=== PATIENT | female | born 1975 | race Caucasian/White ===

== ENCOUNTER 2021-04-04 09:22 | Day surgery (SDC) | payer OTHER ==
[~2021-04-04] VITALS: Ht 165.1 cm; Wt 90.3 kg
[~2021-04-04 09:22] MED LIST: LIDOCAINE 2% 100MG/5ML SDV (FOR ANES.) As Ordered ONE; LR 1,000 ML IV ONE; MIDAZOLAM INJ 2MG/2ML VIAL (J2250 PER 1MG) As Ordered ONE; cefoTEtan DISODIUM 2 GM in D5W MINI-BAG PLUS 50 ML IV ONE; fentaNYL 100 MCG/2 ML INJECTION (J3010) As Ordered ONE
[2021-04-04] MEDS ORDERED: GIANVI PO (09:45)
[2021-04-04] MEDS ORDERED: AMOX875T2 PO (09:45)
[2021-04-04] MEDS ORDERED: LIDOCAINE 2% 100MG/5ML SDV (FOR ANES.) As Ordered ONE (09:48)
[2021-04-04] MEDS ORDERED: BUPIVACAINE HCL 0.25% 30ML VIAL As Ordered ONE (09:50)
[2021-04-04] MEDS ORDERED: SCOPOLAMINE 1MG TRANSDERMAL PATCH As Ordered ONE (10:06)
[2021-04-04] MEDS ORDERED: dexameTHASONE 4 MG/ML 1ML VIAL (J1100 PER 1MG) As Ordered ONE (10:49)
[2021-04-04] MEDS ORDERED: ROCURONIUM BROMIDE 50 MG/5 ML VIAL As Ordered ONE (10:49)
[2021-04-04] MEDS ORDERED: propofoL 200 MG/20 ML VIAL As Ordered ONE ×2 (10:49→12:58)
[2021-04-04] MEDS ORDERED: METOCLOPRAMIDE INJ 10MG/2ML VIAL (J2765 PER 1) As Ordered ONE ×2 (10:50→14:02)
[2021-04-04] MEDS ORDERED: ONDANSETRON 4MG/2ML VIAL As Ordered ONE ×2 (10:50→13:18)
[2021-04-04] MEDS ORDERED: ACETAMINOPHEN 1000MG 100ML IV BTL (OFIRMEV) (J0131 PER 10MG) As Ordered ONE (10:50)
[2021-04-04] MEDS ORDERED: GLYCOPYRROLATE INJ 0.2 MG/ML 2 ML VIAL As Ordered ONE (11:03)
[2021-04-04] MEDS ORDERED: ePHEDrine SULFATE 25 MG/5 ML(5MG/ML) SYRINGE As Ordered ONE (11:06)
[2021-04-04] MEDS ORDERED: SUGAMMADEX SODIUM 500 MG/5 ML VIAL (BRIDION) As Ordered ONE (11:12)
[2021-04-04] MEDS ORDERED: HYDROmorphone HCL 2 MG/ML 1ML VIAL (J1170) As Ordered ONE (11:48)
[2021-04-04] MEDS ORDERED: KETOROLAC 60MG 2ML VIAL As Ordered ONE (11:50)
[2021-04-04] MEDS ORDERED: HYDR-3715 PO (13:33)
[2021-04-04] MEDS ORDERED: LR 1,000 ML IV SCH (13:35)
[2021-04-04] MEDS ORDERED: fentaNYL 100 MCG/2 ML INJECTION (J3010) IV PRN (13:35)
[2021-04-04] MEDS ORDERED: ONDANSETRON 4MG/2ML VIAL IV PRN ×3 (13:35→16:05)
[2021-04-04] MEDS ORDERED: oxyCODONE 5MG TAB PO PRN (13:35)
[2021-04-04] MEDS ORDERED: NORCO, ANEXSIA 5/325MG TABLET (HYDROcodone/ACETAMINOPHEN) PO PRN (14:00)
[2021-04-04] MEDS ORDERED: ACETAMINOPHEN 500 MG TAB PO PRN (14:00)
[2021-04-04] MEDS ORDERED: IBUPROFEN 600MG TAB PO PRN (14:00)
[2021-04-04] MEDS: HYDROMORPHONE HCL 0.5 MG/ 0.5 ML SYRINGE (J1170 PER 1) IV PRN ×2 (14:06→14:44)
[2021-04-04] MEDS ORDERED: METOCLOPRAMIDE INJ 10MG/2ML VIAL (J2765 PER 1) IV PRN (14:15)
[2021-04-04] MEDS ORDERED: ASPIRIN 81 MG CHEW TABLET As Ordered ONE (14:30)
[2021-04-04] MEDS ORDERED: ASPIRIN 325 MG TAB PO ONE (14:40)
--- NOTE | 2021-04-04 14:59 | REP ---
INDICATION: C/O CHEST PAIN, PT IN MAIN RECOVERY. COMPARISON: None. FINDINGS: The technique utilized in obtaining the radiograph has magnified the cardiac silhouette and accentuated the interstitial markings. The superior mediastinal structures are midline. The cardiac silhouette is unremarkable in size, shape, and position. The diaphragmatic surfaces of the lungs are regular, and the costophrenic angles are clear. The pulmonary kenyon are clear. The imaged osseous structures are intact. IMPRESSION: There is no acute cardiopulmonary disease. <Electronically signed by Ryan Perez > 04/04/21 1898
[2021-04-04] MEDS ORDERED: NITROGLYCERIN 0.4 MG SUBL TABLET SL PRN (15:25)
[2021-04-04 15:58] LABS: BASO % 0.2 % (0.0-1.0); EOS % 0.1 % (0.0-3.0); HEMATOCRIT 38.5 % (36.0-47.0); HEMOGLOBIN 12.6 g/dl (12.0-15.5); LYMPH # 0.8 10^3/uL (1.5-5.0); LYMPH % 6.6 % (24.0-44.0); MEAN CORPUSCULAR HEMOGLOBIN 28.8 pg (27.0-33.0); MEAN CORPUSCULAR HGB CONC 32.7 g/dl (32.0-36.5); MEAN CORPUSCULAR VOLUME 88.1 fl (80.0-96.0); MONO # 0.1 10^3/uL (0.0-0.8); MONO % 0.9 % (2.0-8.0); NEUTROPHILS # 11.4 10^3/uL (1.5-8.5); NEUTROPHILS % 91.9 % (36.0-66.0); PLATELET COUNT, AUTOMATED 433 10^3/uL (150-450); RED BLOOD COUNT 4.37 10^6/uL (4.00-5.40); WHITE BLOOD COUNT 12.4 10^3/uL (4.0-10.0)
[2021-04-04] MEDS ORDERED: SENOKOT S TAB PO PRN ×2 (16:05)
[2021-04-04] MEDS ORDERED: GI COCKTAIL 50ML BTL(HYOSCYAMINE/MAALOX/LIDOCAINE VISCOUS)(1:3:1) PO ONE ×3 (16:05→19:00)
[2021-04-04] MEDS ORDERED: NALOXONE INJ 0.4MG/1ML VIAL (J2310 PER 1MG) IV PRN ×3 (16:05→16:35)
[2021-04-04] MEDS ORDERED: PANTOPRAZOLE 40MG VIAL (C9113 PER 1) IV ONE ×3 (16:05→18:00)
[2021-04-04] MEDS ORDERED: SUCRALFATE 1 GM TAB PO ONE ×3 (16:05→17:30)
[2021-04-04] MEDS ORDERED: MOM 30ML SUSPENSION UDC PO PRN ×3 (16:05)
[2021-04-04] MEDS ORDERED: GI COCKTAIL 50ML BTL(HYOSCYAMINE/MAALOX/LIDOCAINE VISCOUS)(1:3:1) PO PRN ×3 (16:05→23:00)
[2021-04-04] MEDS ORDERED: HYDROMORPHONE HCL 0.5 MG/ 0.5 ML SYRINGE (J1170 PER 1) IV ONE ×3 (16:05)
[2021-04-04] MEDS ORDERED: PERCOCET 5MG/325MG TAB PO PRN ×6 (16:05)
[2021-04-04 16:42] LABS: ALBUMIN 3.2 GM/DL (3.2-5.2); ALT/SGPT 19 U/L (12-78); BILIRUBIN,TOTAL 0.3 MG/DL (0.2-1.0); BLOOD UREA NITROGEN 10 MG/DL (7-18); CARBON DIOXIDE LEVEL 24 MEQ/L (21-32); CHLORIDE LEVEL 105 MEQ/L (98-107); CPK CREATINE PHOSPHOKINASE 28 U/L (26-192); CREATININE FOR GFR 1.08 MG/DL (0.55-1.30); GLOMERULAR FILTRATION RATE 58.7 (>58); GLUCOSE, FASTING 136 MG/DL (70-100); MAGNESIUM LEVEL 2.2 MG/DL (1.8-2.4); POTASSIUM SERUM 4.4 MEQ/L (3.5-5.1); SODIUM LEVEL 141 MEQ/L (136-145); TOTAL PROTEIN 7.1 GM/DL (6.4-8.2); TROPONIN I < 0.02 NG/ML (< 0.10)
[2021-04-04 16:47] LABS: CK-MB VALUE MASS < 1.0 NG/ML (<3.6); CPK CREATINE PHOSPHOKINASE 24 U/L (26-192); MB/CK RELATIVE INDEX 4.17 (< OR =4)
--- NOTE | 2021-04-04 16:52 | HPE ---
HISTORY AND PHYSICAL DATE OF ADMISSION: 04/04/2021 CHIEF COMPLAINT: Chest pain. HISTORY OF PRESENT ILLNESS: This is a 46-year-old female status post laparoscopic cholecystectomy secondary to biliary cholic and cholelithiasis, developed postoperative chest pain in the recovery room. Hospitalist was asked to admit the patient for observation. Patient describes a twisting, wringing kind of pain in the left anterior chest, "feels like wringing a washcloth," without any accompanying shortness of breath, palpitations, lightheadedness, dizziness, diaphoresis or vomiting. Patient describes nausea and pleuritic chest pain, worse when she takes a deep breath, unchanged by position or food. Patient says the pain radiates to the back between her shoulder blades. No fever or chills. EKG shows sinus rhythm, ventricular rate of 76. Patient's blood pressure was 135/97. She has had no prior history of smoking, hypertension, diabetes, hypercholesterolemia and is without any family history of early coronary artery disease. Hospitalist was asked to observe the patient for chest pain. Patient has no prior history of hypercoagulable state, deep venous thrombosis (DVT) or pulmonary embolism (PE) in the past. PAST MEDICAL HISTORY: 1. Cholelithiasis. 2. Biliary colic. PAST SURGICAL HISTORY: 1. Teeth extractions. 2. Laparoscopic cholecystectomy 04/04/[address] Bauman. ALLERGIES: No known drug allergies. Patient has a BEE VENOM honey bee allergy. HOME MEDICATIONS: - oral contraceptives - vitamins SOCIAL HISTORY: Patient does not smoke, drinks about twice a year, wine. About a week ago, she tried different types of beer. 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 No recreational drug use. Healthcare proxy is her . CODE STATUS: FULL CODE. FAMILY HISTORY: Mother is alive and well at the age of 61. Father age 63 with history of atrial fibrillation, prior history of ablation. REVIEW OF SYSTEMS: A 10 point system is negative except for positive findings in the history of present illness (HPI) PHYSICAL EXAMINATION: VITAL SIGNS: Temperature 98.4, pulse 73, respiratory rate 18, blood pressure 135/87, 98% on 3 liters nasal cannula. GENERAL: Patient is awake, alert, oriented to person, place and time, answering questions appropriately. HEENT: Anicteric. No jaundice. No jugular venous distention (JVD) or thyromegaly. Dry mucous membranes. LUNGS: Clear to auscultation. No wheezing, rales or rhonchi. HEART: S1, S2. Sinus rhythm. No murmurs, rubs or gallops. ABDOMEN: Soft. Some tenderness epigastric region with radiation to the back. No rebound or guarding. Postoperative laparoscopic incision sites are clean and dry. No bloody drainage. EXTREMITIES: No clubbing, cyanosis or edema. LABORATORY DATA: Pending. EKG: Sinus rhythm. Ventricular rate of 76. ASSESSMENT: A 46-year-old female with a history of cholelithiasis, biliary colic status post laparoscopic cholecystectomy, developed anterior chest pain described as a wringing sensation, like wringing out a washcloth, postoperatively. Hospitalist was called to observe the patient overnight to rule out acute coronary syndrome. Patient does not have any cardiac risk factors such as hypertension, dyslipidemia, diabetes or hypercholesterolemia. She does admit to having psychosocial stress about two weeks prior to her surgery. No family history of early coronary artery disease. Patient also has no history of any hypercoagulable state, deep venous thrombosis (DVT) or pulmonary embolism (PE) in the past and has not been immobilized. IMPRESSION: 1. Atypical chest pain, most likely gastrointestinal (GI) related secondary to her recent laparoscopic cholecystectomy. Patient will be given Protonix, Carafate, GI cocktail as needed. Despite not having any history of coronary artery disease or cardiovascular risk factors or family history of coronary artery disease, patient will be observed overnight with cardiac markers every 6 hours, a 12-lead EKG every 6 hours as needed for chest pain and a 2D echocardiogram will be obtained. 2. Cholelithiasis/biliary colic status post laparoscopic cholecystectomy. Management per Dr. Bauman. Percocet 1-2 tablets every 4-6 hours, ibuprofen 600 mg every 6 hours with food. Perioperative antibiotics were given Cefotetan. 3. Hypertension, uncontrolled, secondary to pain. Patient has been given Percocet 1-2 tablets as needed, intravenous (IV) Dilaudid times one dose and ibuprofen and Tylenol. 4. Abnormal EKG: check 2 d echo. monitor for anginal sx's and cycle cardiac markers. DISPOSITION: Patient may be discharged home in the morning if negative findings overnight for acute coronary syndrome. [facility]
[2021-04-04 17:00] VITALS: BP 124/82
[2021-04-04 17:03] LABS: CK-MB VALUE MASS < 1.0 NG/ML (<3.6); MB/CK RELATIVE INDEX 3.57 (< OR =4)
[2021-04-04] MEDS: NS 1,000 ML IV SCH (17:24)
[2021-04-04 17:30] VITALS: BP 134/87
[2021-04-04] MEDS ORDERED: SUCRALFATE 1 GM TAB PO SCH ×2 (17:30)
[2021-04-04] MEDS: KETOROLAC 30 MG/ML 1ML VIAL IV SCH (17:38)
[2021-04-04 18:30] VITALS: BP 128/81
[2021-04-04] MEDS ORDERED: HYDROMORPHONE HCL 0.5 MG/ 0.5 ML SYRINGE (J1170 PER 1) IV PRN (19:00)
[2021-04-04 19:30] VITALS: BP 103/66
[2021-04-04] MEDS: SUCRALFATE 1 GM TAB PO SCH (20:06)
[2021-04-04 20:45] VITALS: BP 115/75
[2021-04-04 21:45] VITALS: BP 114/74
[2021-04-05] MEDS: KETOROLAC 30 MG/ML 1ML VIAL IV SCH ×2 (00:18→05:31)
[2021-04-05 01:05] LABS: CK-MB VALUE MASS < 1.0 NG/ML (<3.6); CPK CREATINE PHOSPHOKINASE 31 U/L (26-192); MB/CK RELATIVE INDEX 3.23 (< OR =4); TROPONIN I < 0.02 NG/ML (< 0.10)
[2021-04-05 02:00] VITALS: BP 103/68
[2021-04-05] MEDS: NS 1,000 ML IV SCH (03:28)
[2021-04-05 06:00] VITALS: BP 128/85
--- NOTE | 2021-04-05 06:05 | RO ---
OPERATIVE NOTE DATE OF OPERATION: 04/04/2021 PREOPERATIVE DIAGNOSIS: Cholelithiasis with acute cholecystitis. POSTOPERATIVE DIAGNOSIS: Cholelithiasis with acute cholecystitis. PROCEDURE: Laparoscopic cholecystectomy SURGEON: Dontae Bauman MD ACCELERATOR OPERATOR: None. ANESTHESIA: General INDICATIONS FOR THE PROCEDURE: The patient is a 46-year-old woman, who developed severe upper abdominal pain approximately one week ago. She was seen in the emergency department where imaging showed cholelithiasis with a stone in the gallbladder neck and some mild gallbladder wall thickening. Signs and symptoms were consistent with acute cholecystitis. She was discharged home from the emergency department on antibiotics. I saw her in the office on the April 03; and after discussion scheduled her for a laparoscopic cholecystectomy today. DESCRIPTION OF PROCEDURE: The patient was brought to the operating room and placed on the table in a supine position. She was placed under general endotracheal anesthesia. The patient's abdomen was prepped and draped in a sterile fashion. 25% Marcaine was infiltrated at the trocar sites as needed. I elected to make the initial incision along the midline in the infraumbilical site because she appeared to be somewhat short waisted. A Veress needle was inserted after making the incision and the abdomen was insufflated with carbon dioxide gas. The fascia was then incised with a scalpel and a 12 mm port was placed without difficulty. Initial examination showed no evidence of Veress needle or trocar injury. The gallbladder was noted to be somewhat thickened in appearance. The liver appeared normal. Visualized loops of the small and large bowel appeared normal. A 5 mm trocar was placed in the left upper quadrant. Two 5 mm ports were placed in the right upper quadrant. The edge of the liver was elevated. The gallbladder was found to be very tensely distended and thick walled. There were some adhesions of the surrounding omentum to the gallbladder wall. It was impossible to grasp the gallbladder because its tense distension, so the gallbladder was aspirated, though only a small amount of light yellow green fluid was aspirated. This did allow the gallbladder to be grasped at the fundus. The gallbladder was elevated and the adhesions of the omentum were dissected free using the cautery. The gallbladder was then further elevated. There was marked thickening and scarring around the gallbladder body and neck. It was apparent as the gallbladder was further inspected that there appeared to be a large stone perhaps 2 cm in diameter in the very neck of the gallbladder. The inflamed pericholecystic tissues near the gallbladder neck were opened by incising the peritoneum with the Hook cautery. Dissection was a slow process through the markedly indurated and inflamed tissues. After freeing the neck of the gallbladder somewhat further, a tubular structure was identified, which was clipped and divided. Care was taken to stay very close to the wall of the inflamed gallbladder. This structure was the cystic duct. With further dissection, the gallbladder neck was further dissected free. A cholecystic artery was identified and this was also clipped and divided. With further dissection, it was possible to free the gallbladder completely from the gallbladder bed, but this required dissection through some quite thickened and fibrotic appearing scar tissue. The gallbladder was not perforated. The gallbladder was placed in the Endo pouch. The right upper quadrant was irrigated and inspected. The clip on the cystic duct stump was inspected and was intact and completely cross the cystic duct. There was no evidence of any bleeding or bile leak. The patient was returned to a flat position. The abdomen was deflated and the trocars were all removed. The gallbladder was recovered through the infraumbilical site. Because of the marked thickening of the gallbladder wall and the large stones, it was necessary to extend this incision to approximately 3 cm. The gallbladder was sent for permanent pathology. The peritoneum in this wound was closed with a running suture of 2-0 Vicryl. The fascia was then closed in two layers using running sutures of 2-0 PDS. This appeared to get a nice closure of the fascia. The skin incisions were then closed with buried sutures of 4-0 Vicryl. Additional local anesthesia was infiltrated and Steri-Strips and light dressings were applied. The patient tolerated the procedure well without apparent complication. She was awakened in the operating room, extubated and moved to the recovery room in stable condition. SADE
[2021-04-05] MEDS: SUCRALFATE 1 GM TAB PO SCH (07:39)
[2021-04-05] MEDS ORDERED: PANTOPRAZOLE 40MG TAB (PROTONIX) PO SCH ×3 (09:00)
[2021-04-05 09:14] LABS: BASO % 0.3 % (0.0-1.0); EOS # 0.1 10^3/uL (0.0-0.5); EOS % 0.6 % (0.0-3.0); HEMATOCRIT 31.9 % (36.0-47.0); HEMOGLOBIN 10.5 g/dl (12.0-15.5); LYMPH # 2.8 10^3/uL (1.5-5.0); MEAN CORPUSCULAR HEMOGLOBIN 29.2 pg (27.0-33.0); MEAN CORPUSCULAR HGB CONC 32.9 g/dl (32.0-36.5); MEAN CORPUSCULAR VOLUME 88.6 fl (80.0-96.0); MONO # 0.9 10^3/uL (0.0-0.8); MONO % 9.8 % (2.0-8.0); NEUTROPHILS # 5.4 10^3/uL (1.5-8.5); NEUTROPHILS % 58.9 % (36.0-66.0); PLATELET COUNT, AUTOMATED 373 10^3/uL (150-450); WHITE BLOOD COUNT 9.3 10^3/uL (4.0-10.0)
[2021-04-05 09:37] LABS: ALBUMIN 2.6 GM/DL (3.2-5.2); ALT/SGPT 16 U/L (12-78); BILIRUBIN,TOTAL 0.3 MG/DL (0.2-1.0); BLOOD UREA NITROGEN 8 MG/DL (7-18); CALCIUM LEVEL 8.1 MG/DL (8.5-10.1); CARBON DIOXIDE LEVEL 26 MEQ/L (21-32); CHLORIDE LEVEL 106 MEQ/L (98-107); CHOLESTEROL LEVEL 122 MG/DL (<200); CHOLESTEROL RISK RATIO 2.975 (<5); CK-MB VALUE MASS < 1.0 NG/ML (<3.6); CPK CREATINE PHOSPHOKINASE 25 U/L (26-192); CREATININE FOR GFR 0.87 MG/DL (0.55-1.30); GLOMERULAR FILTRATION RATE > 60.0 (>58); GLUCOSE, FASTING 85 MG/DL (70-100); HDL CHOLESTEROL 41 MG/DL (>40); LDL CHOLESTEROL 61 MG/DL (<100); NON-HDL-C 81 MG/DL; POTASSIUM SERUM 4.1 MEQ/L (3.5-5.1); SODIUM LEVEL 138 MEQ/L (136-145); TOTAL PROTEIN 5.8 GM/DL (6.4-8.2); TRIGLYCERIDES LEVEL 99 MG/DL (<150); TROPONIN I < 0.02 NG/ML (< 0.10)
[2021-04-05 10:00] VITALS: BP 107/67
[2021-04-05] MEDS ORDERED: PRIL20TA2 PO (11:01)
[2021-04-05] MEDS ORDERED: SUCR1TA PO (11:01)
--- NOTE | 2021-04-05 11:31 | DSES ---
DISCHARGE SUMMARY DATE OF ADMISSION: 04/04/2021 DATE OF DISCHARGE: 04/05/2021 PRIMARY DISCHARGE DIAGNOSIS: 1. Atypical chest pain status post laparoscopic cholecystectomy. 2. Cholelithiasis with biliary colic status post laparoscopic cholecystectomy on 04/04/2021. 3. Abnormal EKG. 4. Sinus bradycardia, asymptomatic. 5. Reactive leukocytosis. UTILITIES OPERATOR: General surgeon, Dr. Bauman PROCEDURES DURING THIS ADMISSION: Laparoscopic cholecystectomy. DISCHARGE INSTRUCTIONS: Postop management per Dr. Bauman, primary care physician appointment within five days of discharge and a referral to print production manager for a stress test due to abnormal EKG and complaints of chest pain. HOSPITAL COURSE: This is a 46-year-old female status post laparoscopic cholecystectomy on 04/04/2021 due to acute cholecystitis and cholelithiasis, developed postop atypical chest pain described as "like wringing a washcloth" without diaphoresis, nausea, vomiting, epigastric discomfort or radiation up the neck or down the arm, shortness of breath or lightheadedness. EKG was abnormal with some ST-T wave changes in the anterior leads. Troponins were negative x3 sets. Patient was admitted overnight for observation and had resolution of her chest pain with GI cocktail, Protonix, Carafate and Nitroglycerin. She had significant improvement with the pain when she was given IV Dilaudid. No issues on telemetry. She remains in sinus rhythm but had episodes of sinus bradycardia which were asymptomatic. Blood pressure was well maintained at 105 to 128 systolic. Patient is tolerating her diet well today. No complaints. No issues overnight. PHYSICAL EXAMINATION ON DISCHARGE: VITAL SIGNS: Temperature 97.2, pulse 54, respiratory rate 17, blood pressure 107/67, 95% on room air. GENERAL: Anicteric, no jaundice. NECK: No JVD. No thyromegaly. No cervical lymphadenopathy. LUNGS: Clear to auscultation. No wheezing, rales or rhonchi. HEART: S1 and S2, sinus rhythm with episodes of bradycardia. ABDOMEN: Soft, postop clean incision sites from the laparoscopic surgery. EXTREMITIES: No cyanosis or clubbing. LABORATORY DATA/IMAGING STUDIES/MICROBIOLOGY: Please see the chart. DISCHARGE MEDICATIONS: 1. Hydrocodone acetaminophen 5/325 one tablet q. 6 as needed for severe pain. 2. Oral contraceptive one tablet daily. 3. Carafate 1 gram a.c. h.s. 4. Prilosec 20 mg daily. TIME SPENT ON DISCHARGE: 30 minutes
--- NOTE | 2021-04-05 15:53 | ECGEPIP ---
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
--- NOTE | 2021-04-05 15:54 | ECGEPIP ---
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
--- NOTE | 2021-04-05 15:58 | ECGEPIP ---
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
== END 2021-04-05 11:51 | disposition home or self-care (01) ==
LOC: M SDC 09:22 → M MSPAV 16:50 → M SDC 04-05 11:51
PROVIDERS: ATTEND Surgery
DX: K80.12 Calculus of gallbladder with acute and chronic cholecystitis without obstruction (principal); R07.89 Other chest pain; R03.0 Elevated blood-pressure reading, without diagnosis of hypertension; R94.31 Abnormal electrocardiogram [ECG] [EKG]; R00.1 Bradycardia, unspecified; D72.829 Elevated white blood cell count, unspecified; R11.0 Nausea; R10.13 Epigastric pain; Z91.030 Bee allergy status
CPT/HCPCS: 36415; 47562; 71045; 80053; 80061; 81025; 82550; 82553; 83036; 83735; 84443; 84484; 85025; 85379; 88304; 93005; 96374; 96375; 96376; C9113; J0131; J1100; J1170; J1885; J2250; J2405; J2765; J3010; U0002

== ENCOUNTER 2023-08-31 08:20 | Day surgery (SDC) | payer OTHER ==
[~2023-08-31] VITALS: Ht 165.1 cm; Wt 99.3 kg
[~2023-08-31 08:20] MED LIST changes: +AMOX875T2 PO; +GIANVI PO; +HYDR-3715 PO; -LIDOCAINE 2% 100MG/5ML SDV (FOR ANES.) As Ordered ONE; -LR 1,000 ML IV ONE; -MIDAZOLAM INJ 2MG/2ML VIAL (J2250 PER 1MG) As Ordered ONE; +NS 1,000 ML IV ONE; +PRIL20TA2 PO; +SKIN PO; +SUCR1TA PO; +VESTURA PO; +[UNRECOGNIZED DRUG - OTHER] PO; +[UNRECOGNIZED DRUG - OTHER] PO; +[UNRECOGNIZED DRUG - OTHER] PO; +[UNRECOGNIZED DRUG - OTHER] PO; +[UNRECOGNIZED DRUG - OTHER] PO; +[UNRECOGNIZED DRUG - OTHER] PO; -cefoTEtan DISODIUM 2 GM in D5W MINI-BAG PLUS 50 ML IV ONE; -fentaNYL 100 MCG/2 ML INJECTION (J3010) As Ordered ONE
[2023-08-31] MEDS ORDERED: propofoL 200 MG/20 ML VIAL As Ordered ONE ×3 (09:59→10:12)
[2023-08-31 10:20] VITALS: TEMP 96.2
[2023-08-31 10:40] VITALS: BP 140/76; O2SAT 100
== END 2023-08-31 10:54 | disposition home or self-care (01) ==
LOC: M OPP 08:20
PROVIDERS: ATTEND Internal Medicine Gastroenterology
DX: Z12.11 Encounter for screening for malignant neoplasm of colon (principal); K64.8 Other hemorrhoids; K57.30 Diverticulosis of large intestine without perforation or abscess without bleeding; K64.4 Residual hemorrhoidal skin tags

== ENCOUNTER → 2024-02-29 | Outpatient (REF) | payer OTHER ==
[~2024-02-29] MED LIST changes: -NS 1,000 ML IV ONE
[2024-03-02 13:47] LABS: HPV APTIMA Not Detected (Not Detected)
== END ==
LOC: M PLALAB 15:49
PROVIDERS: ATTEND Obstetrics & Gynecology
DX: Z12.4 Encounter for screening for malignant neoplasm of cervix (principal)
CPT/HCPCS: 87624; G0123

== ENCOUNTER → 2025-09-13 | Outpatient (REF) | payer OTHER ==
[2025-09-15 13:57] LABS: HPV APTIMA Not Detected (Not Detected)
== END ==
LOC: M SFHCWAGY 15:23
PROVIDERS: ATTEND Physician Assistant
DX: Z12.4 Encounter for screening for malignant neoplasm of cervix (principal)
CPT/HCPCS: 87624; G0123

== ENCOUNTER → 2025-09-20 | Outpatient (CLI) | payer OTHER | LOC: M PLAIMG 08:39 | PROVIDERS: ATTEND Internal Medicine Hematology & Oncology | DX: Z13.6 Encounter for screening for cardiovascular disorders (principal); C50.512 Malignant neoplasm of lower-outer quadrant of left female breast; I34.0 Nonrheumatic mitral (valve) insufficiency ==